=== PATIENT | female | born 1950 | race Caucasian/White ===

== ENCOUNTER 2020-07-24 11:45 | Outpatient (CLI) | payer MEDICARE, OTHER ==
[2020-07-25 01:16] LABS: SARS-CoV-2 PCR by NAA Not Detected (NotDetected)
== END 2020-07-24 11:46 | disposition home or self-care (01) ==
LOC: CSHLAB 11:45
PROVIDERS: ATTEND Internal Medicine Pulmonary Disease
DX: Z20.822 Contact with and (suspected) exposure to COVID-19 (principal); J44.9 Chronic obstructive pulmonary disease, unspecified
CPT/HCPCS: 87635; U0003; U0005

== ENCOUNTER 2020-07-29 11:48 | Outpatient (CLI) | payer MEDICARE, OTHER | END 2020-07-29 11:49 | disposition home or self-care (01) | LOC: CSHCP 11:48 | PROVIDERS: ATTEND Internal Medicine Pulmonary Disease | DX: J44.9 Chronic obstructive pulmonary disease, unspecified (principal); R94.2 Abnormal results of pulmonary function studies | CPT/HCPCS: 94060; 94726; 94729; 94760 ==

== ENCOUNTER 2021-09-02 03:35 | Inpatient (IN) | payer MEDICARE, MEDICAID ==
[2021-09-02] MEDS ORDERED: Furosemide 100 MG/10 ML VIAL SLOW IVP SCH (06:00)
[2021-09-02] MEDS ORDERED: Dextrose 5% in Water 1,000 ML IV PRN (06:02)
[2021-09-02] MEDS ORDERED: Dextrose 50% Abboject 50 ML SYRINGE SLOW IVP PRN (06:02)
[2021-09-02 06:53] LABS: Cardiac Risk 2.5 (Less than 4.5); Cholesterol 96 mg/dl (< 200 Desired); HDL Cholesterol 38 mg/dL (>60 Neg Risk); LDL Cholesterol, Calculated 38 mg/dL; Magnesium 1.4 mg/dL (1.6-2.6); Triglycerides 101 mg/dL (Less than 150)
[2021-09-02 06:57] LABS: Troponin I Less than 0.010 ng/mL (< 0.028)
[2021-09-02] MEDS: methylPREDNISolone Sod Succ 40 MG VIAL IVP SCH ×2 (07:23→16:56)
[2021-09-02] MEDS: Potassium Chloride 20 MEQ TAB PO SCH ×2 (07:29→09:26)
[2021-09-02] MEDS: Budesonide 0.5 MG/2 ML NEB NEB SCH ×2 (08:04→19:00)
[2021-09-02] MEDS: Arformoterol 15 MCG/2 ML NEB NEB SCH ×2 (08:04→19:10)
[2021-09-02] MEDS ORDERED: Losartan Potassium 50 MG TAB PO SCH (09:00)
[2021-09-02] MEDS: Aspirin 325 mg Enteric Coated Tablet PO SCH (09:25)
[2021-09-02] MEDS: Enoxaparin Sodium 40 MG/0.4 ML SYRINGE SC SCH (09:25)
[2021-09-02] MEDS: Hydrochlorothiazide 25 MG TAB PO SCH (09:25)
[2021-09-02] MEDS: Citalopram 20 MG TAB PO SCH (09:25)
[2021-09-02] MEDS: metFORMIN 500 MG TAB PO SCH ×2 (09:25→16:56)
[2021-09-02] MEDS: Carvedilol 25 MG TAB PO SCH ×2 (09:26→16:56)
[2021-09-02] MEDS: Loratadine 10 MG TAB PO SCH (09:26)
[2021-09-02] MEDS: HumaLOG 300 UNITS/3 ML VIAL SC PRN ×2 (16:57→21:36)
[2021-09-02] MEDS: Magnesium Oxide 400 MG TAB PO SCH (18:44)
[2021-09-02] MEDS: Atorvastatin Calcium 10 MG TAB PO SCH (20:16)
[2021-09-02] MEDS: Gabapentin 300 MG CAP PO SCH (20:16)
[2021-09-02] MEDS: Montelukast Sodium 10 mg Tablet PO SCH (20:16)
[2021-09-03] MEDS ORDERED: rOPINIRole HCl 1 MG TAB PO SCH (01:00)
[2021-09-03] MEDS: GUAIFENESIN SF SOLN 200 MG/10 ML UDCUP PO PRN ×4 (01:02→20:51)
[2021-09-03 05:36] LABS: ALT (SGPT) 18 U/L (8-55); AST (SGOT) 20 U/L (5-34); Albumin 3.6 g/dL (3.4-4.8); Alkaline Phosphatase 66 U/L (40-110); Anion Gap 17 mmol/L (10-20); BUN (Urea Nitrogen) 50 mg/dL (9.8-20.1); Bilirubin, Total 0.2 mg/dL (0.2-1.2); Calc. Creatinine Clearance 60 mL/min (70-130); Calcium 9.4 mg/dL (7.8-10.44); Carbon Dioxide 31 mmol/L (23-31); Chloride 97 mmol/L (98-107); Globulin 3.4 g/dL (2.4-3.5); Glucose 369 mg/dL (83-110); Magnesium 1.6 mg/dL (1.6-2.6); Potassium 4.8 mmol/L (3.5-5.1); Sodium 140 mmol/L (136-145)
[2021-09-03] MEDS: HumaLOG 300 UNITS/3 ML VIAL SC PRN ×4 (05:38→20:51)
[2021-09-03] MEDS: methylPREDNISolone Sod Succ 40 MG VIAL IVP SCH ×2 (05:40→17:02)
[2021-09-03] MEDS: Budesonide 0.5 MG/2 ML NEB NEB SCH ×2 (06:56→19:30)
[2021-09-03] MEDS: Arformoterol 15 MCG/2 ML NEB NEB SCH ×2 (06:56→19:35)
[2021-09-03] MEDS ORDERED: Loperamide HCl 2 MG CAP PO PRN (07:42)
[2021-09-03] MEDS ORDERED: Moisturizing Cream (Eucerin) 113 GM JAR TOP PRN (07:42)
[2021-09-03] MEDS ORDERED: Artificial Tear Sol 15 ML BOT EA EYE PRN (07:42)
[2021-09-03] MEDS ORDERED: hydrALAZINE 20 MG/ML VIAL SLOW IVP PRN (07:42)
[2021-09-03] MEDS ORDERED: Calcium Carbonate 500 MG ChewTAB PO PRN (07:42)
[2021-09-03] MEDS ORDERED: Ondansetron PF 4 MG/2 ML Vial IVP PRN (07:42)
[2021-09-03] MEDS ORDERED: Ondansetron ODT 4 MG TAB PO PRN (07:42)
[2021-09-03] MEDS ORDERED: Senokot S 8.6-50 MG TAB PO PRN (09:00)
[2021-09-03] MEDS: Enoxaparin Sodium 40 MG/0.4 ML SYRINGE SC SCH (09:48)
[2021-09-03] MEDS: metFORMIN 500 MG TAB PO SCH ×2 (09:49→16:51)
[2021-09-03] MEDS: Citalopram 20 MG TAB PO SCH (09:49)
[2021-09-03] MEDS: Hydrochlorothiazide 25 MG TAB PO SCH (09:49)
[2021-09-03] MEDS: Carvedilol 25 MG TAB PO SCH ×2 (09:49→16:51)
[2021-09-03] MEDS: Loratadine 10 MG TAB PO SCH (09:49)
[2021-09-03] MEDS: hydrALAZINE 25 MG TAB PO SCH ×2 (09:50→20:50)
[2021-09-03] MEDS: Magnesium Oxide 400 MG TAB PO SCH (09:50)
[2021-09-03] MEDS: Aspirin 325 mg Enteric Coated Tablet PO SCH (09:50)
[2021-09-03] MEDS: Valsartan 80 MG TAB PO SCH (09:58)
[2021-09-03] MEDS: Montelukast Sodium 10 mg Tablet PO SCH (20:50)
[2021-09-03] MEDS: Gabapentin 300 MG CAP PO SCH (20:50)
[2021-09-03] MEDS: Atorvastatin Calcium 10 MG TAB PO SCH (20:51)
[2021-09-04] MEDS: methylPREDNISolone Sod Succ 40 MG VIAL IVP SCH ×2 (06:40→18:34)
[2021-09-04] MEDS: HumaLOG 300 UNITS/3 ML VIAL SC PRN ×4 (06:44→20:34)
[2021-09-04] MEDS: Arformoterol 15 MCG/2 ML NEB NEB SCH (07:06)
[2021-09-04] MEDS: Budesonide 0.5 MG/2 ML NEB NEB SCH ×2 (07:07→21:45)
[2021-09-04] MEDS: Carvedilol 25 MG TAB PO SCH ×2 (08:38→18:33)
[2021-09-04] MEDS: Citalopram 20 MG TAB PO SCH (08:39)
[2021-09-04] MEDS: Enoxaparin Sodium 40 MG/0.4 ML SYRINGE SC SCH (08:40)
[2021-09-04] MEDS: Loratadine 10 MG TAB PO SCH (08:41)
[2021-09-04] MEDS: Hydrochlorothiazide 25 MG TAB PO SCH (08:41)
[2021-09-04] MEDS: hydrALAZINE 25 MG TAB PO SCH ×2 (08:41→20:33)
[2021-09-04] MEDS: metFORMIN 500 MG TAB PO SCH ×2 (08:42→18:33)
[2021-09-04] MEDS: Valsartan 80 MG TAB PO SCH (08:42)
[2021-09-04] MEDS: Aspirin 325 mg Enteric Coated Tablet PO SCH (08:42)
[2021-09-04] MEDS ORDERED: Valsartan 80 MG TAB PO SCH (11:00)
[2021-09-04] MEDS: Gabapentin 300 MG CAP PO SCH (20:32)
[2021-09-04] MEDS: guaiFENesin ER 600 MG TAB PO PRN (20:32)
[2021-09-04] MEDS: Montelukast Sodium 10 mg Tablet PO SCH (20:33)
[2021-09-04] MEDS: Atorvastatin Calcium 10 MG TAB PO SCH (20:33)
[2021-09-05 04:28] LABS: #Monocytes 0.5 10x3/uL (0.0-1.1); #Neutrophils 10.5 10x3/uL (1.5-8.4); %Basophils 0.1 % (0.0-2.0); %Lymphocytes 10.4 % (18.0-47.0); %Monocytes 4.1 % (0.0-10.0); %Neutrophils 84.2 % (40.0-75.0); Hemoglobin 10.6 g/dL (12.0-15.5); Mean Corpuscular HGB CONC 29.4 g/dL (32.0-36.0); Mean Corpuscular Hemoglobin 24.7 pg (27.0-33.0); Mean Platelet Volume 11.9 fl (7.4-10.4); Platelet Count 179 10x3/uL (150-450); RBC Distribution Width 14.9 % (11.5-14.5); White Blood Cell (WBC) Count 12.4 10x3/uL (3.5-10.5)
[2021-09-05 04:50] LABS: ALT (SGPT) 23 U/L (8-55); AST (SGOT) 18 U/L (5-34); Albumin 3.6 g/dL (3.4-4.8); Alkaline Phosphatase 57 U/L (40-110); Anion Gap 17 mmol/L (10-20); BUN (Urea Nitrogen) 50 mg/dL (9.8-20.1); Bilirubin, Total 0.2 mg/dL (0.2-1.2); Calc. Creatinine Clearance 74 mL/min (70-130); Calcium 9.6 mg/dL (7.8-10.44); Carbon Dioxide 30 mmol/L (23-31); Chloride 100 mmol/L (98-107); Globulin 2.9 g/dL (2.4-3.5); Glucose 206 mg/dL (83-110); Magnesium 2.1 mg/dL (1.6-2.6); Phosphorus 3.3 mg/dL (2.3-4.7); Potassium 4.5 mmol/L (3.5-5.1); Protein, Total 6.5 g/dL (5.8-8.1); Sodium 142 mmol/L (136-145)
[2021-09-05] MEDS: methylPREDNISolone Sod Succ 40 MG VIAL IVP SCH ×2 (05:09→17:20)
[2021-09-05] MEDS: HumaLOG 300 UNITS/3 ML VIAL SC PRN ×4 (05:10→20:17)
[2021-09-05 05:38] LABS: Platelet Morphology Comment Appears Adequate
[2021-09-05 05:39] LABS: Anisocytosis SLIGHT = 6-15 cells (100X) (0-5/hpf); Hypochromia SLIGHT = 6-15 cells (100X) (0-5/hpf); Macrocytosis SLIGHT = 6-15 cells (100X) (0-5/hpf); Microcytosis SLIGHT = 6-15 cells (100X) (0-5/hpf); Polychromasia SLIGHT = 2-3 cells (100X) (0-2/hpf)
[2021-09-05] MEDS: Arformoterol 15 MCG/2 ML NEB NEB SCH ×3 (06:40→20:14)
[2021-09-05] MEDS: Budesonide 0.5 MG/2 ML NEB NEB SCH ×2 (06:41→18:36)
[2021-09-05] MEDS: Valsartan 80 MG TAB PO SCH (08:18)
[2021-09-05] MEDS: Loratadine 10 MG TAB PO SCH (08:19)
[2021-09-05] MEDS: hydrALAZINE 25 MG TAB PO SCH ×3 (08:20→20:14)
[2021-09-05] MEDS: Enoxaparin Sodium 40 MG/0.4 ML SYRINGE SC SCH (08:20)
[2021-09-05] MEDS: metFORMIN 500 MG TAB PO SCH ×2 (08:20→17:20)
[2021-09-05] MEDS: Hydrochlorothiazide 25 MG TAB PO SCH (08:21)
[2021-09-05] MEDS: Carvedilol 25 MG TAB PO SCH ×2 (08:21→17:20)
[2021-09-05] MEDS: Citalopram 20 MG TAB PO SCH (08:21)
[2021-09-05] MEDS: Aspirin 325 mg Enteric Coated Tablet PO SCH (08:21)
[2021-09-05] MEDS: NPH, Human Insulin Isophane 300 UNIT/3 ML VIAL SC SCH ×2 (08:24→20:15)
[2021-09-05] MEDS: Cepastat Lozenges 1 LOZ PO PRN ×3 (17:28→23:05)
[2021-09-05] MEDS: guaiFENesin ER 600 MG TAB PO PRN (19:29)
[2021-09-05] MEDS: Gabapentin 300 MG CAP PO SCH (20:14)
[2021-09-05] MEDS: Atorvastatin Calcium 10 MG TAB PO SCH (20:14)
[2021-09-05] MEDS: Montelukast Sodium 10 mg Tablet PO SCH (20:14)
[2021-09-06] MEDS ORDERED: Promethazine 25 MG TAB PO SCH (01:00)
[2021-09-06] MEDS: Cepastat Lozenges 1 LOZ PO PRN (01:26)
[2021-09-06] MEDS: methylPREDNISolone Sod Succ 40 MG VIAL IVP SCH ×3 (05:56→22:31)
[2021-09-06] MEDS: HumaLOG 300 UNITS/3 ML VIAL SC PRN ×2 (05:56→22:28)
[2021-09-06] MEDS: Arformoterol 15 MCG/2 ML NEB NEB SCH ×2 (07:22→19:25)
[2021-09-06] MEDS: Budesonide 0.5 MG/2 ML NEB NEB SCH ×2 (07:23→19:15)
[2021-09-06] MEDS: Hydrochlorothiazide 25 MG TAB PO SCH (09:29)
[2021-09-06] MEDS: hydrALAZINE 25 MG TAB PO SCH ×3 (09:29→22:31)
[2021-09-06] MEDS: Carvedilol 25 MG TAB PO SCH ×2 (09:29→17:22)
[2021-09-06] MEDS: Enoxaparin Sodium 40 MG/0.4 ML SYRINGE SC SCH (09:29)
[2021-09-06] MEDS: Valsartan 80 MG TAB PO SCH (09:29)
[2021-09-06] MEDS: Citalopram 20 MG TAB PO SCH (09:29)
[2021-09-06] MEDS: Loratadine 10 MG TAB PO SCH (09:29)
[2021-09-06] MEDS: metFORMIN 500 MG TAB PO SCH ×2 (09:29→17:22)
[2021-09-06] MEDS: Aspirin 325 mg Enteric Coated Tablet PO SCH (09:29)
[2021-09-06] MEDS: NPH, Human Insulin Isophane 300 UNIT/3 ML VIAL SC SCH ×2 (09:29→22:28)
[2021-09-06] MEDS ORDERED: Carvedilol 25 MG TAB PO SCH (21:00)
[2021-09-06] MEDS: Montelukast Sodium 10 mg Tablet PO SCH (22:26)
[2021-09-06] MEDS: Atorvastatin Calcium 10 MG TAB PO SCH (22:27)
[2021-09-06] MEDS: Gabapentin 300 MG CAP PO SCH (22:27)
[2021-09-07 04:58] LABS: Hemoglobin 11.1 g/dL (12.0-15.5); Mean Corpuscular HGB CONC 30.1 g/dL (32.0-36.0); Mean Corpuscular Hemoglobin 24.6 pg (27.0-33.0); Mean Corpuscular Volume 81.6 fl (81.6-98.3); Mean Platelet Volume 11.9 fl (7.4-10.4); Platelet Count 167 10x3/uL (150-450); RBC Distribution Width 14.6 % (11.5-14.5); Red Blood Cell (RBC) Count 4.52 10x6/uL (3.90-5.03); White Blood Cell (WBC) Count 11.7 10x3/uL (3.5-10.5)
[2021-09-07 05:00] LABS: MDiff Complete? YES; Manual Diff?? YES
[2021-09-07 05:11] LABS: Anion Gap 15 mmol/L (10-20); BUN (Urea Nitrogen) 41 mg/dL (9.8-20.1); Calc. Creatinine Clearance 76 mL/min (70-130); Calcium 9.4 mg/dL (7.8-10.44); Carbon Dioxide 31 mmol/L (23-31); Chloride 97 mmol/L (98-107); Glucose 223 mg/dL (83-110); Potassium 4.8 mmol/L (3.5-5.1); Sodium 138 mmol/L (136-145)
[2021-09-07 05:28] LABS: Band 2 % (5-11); Lymphocytes 6 % (21-51); Metamyelocyte 1 % (0-0); Monocytes 1 % (0-10); Myelocyte 1 % (0-0); Neutrophil 86 % (42-75); Platelet Morphology Comment Appears Adequate; Reactive Lymphocytes 3 % (0-10)
[2021-09-07] MEDS: HumaLOG 300 UNITS/3 ML VIAL SC PRN ×3 (06:33→22:04)
[2021-09-07] MEDS: methylPREDNISolone Sod Succ 40 MG VIAL IVP SCH ×3 (06:33→22:03)
[2021-09-07] MEDS: Arformoterol 15 MCG/2 ML NEB NEB SCH ×2 (07:22→19:20)
[2021-09-07] MEDS: Budesonide 0.5 MG/2 ML NEB NEB SCH ×2 (07:23→19:10)
[2021-09-07] MEDS: Aspirin 325 mg Enteric Coated Tablet PO SCH (08:20)
[2021-09-07] MEDS: Citalopram 20 MG TAB PO SCH (08:20)
[2021-09-07] MEDS: Carvedilol 25 MG TAB PO SCH ×2 (08:20→17:06)
[2021-09-07] MEDS: Hydrochlorothiazide 25 MG TAB PO SCH (08:20)
[2021-09-07] MEDS: metFORMIN 500 MG TAB PO SCH ×2 (08:20→17:07)
[2021-09-07] MEDS: hydrALAZINE 25 MG TAB PO SCH ×3 (08:20→21:59)
[2021-09-07] MEDS: Amlodipine 10 MG TAB PO SCH (08:20)
[2021-09-07] MEDS: Enoxaparin Sodium 40 MG/0.4 ML SYRINGE SC SCH (08:20)
[2021-09-07] MEDS: NPH, Human Insulin Isophane 300 UNIT/3 ML VIAL SC SCH ×2 (08:20→22:03)
[2021-09-07] MEDS: Loratadine 10 MG TAB PO SCH (08:20)
[2021-09-07] MEDS: Valsartan 80 MG TAB PO SCH (08:21)
[2021-09-07] MEDS ORDERED: Citalopram 20 MG TAB PO SCH (09:00)
[2021-09-07 10:53] VITALS: BMI 46.9
[2021-09-07] MEDS: Gabapentin 300 MG CAP PO SCH (22:01)
[2021-09-07] MEDS: Montelukast Sodium 10 mg Tablet PO SCH (22:02)
[2021-09-07] MEDS: Atorvastatin Calcium 10 MG TAB PO SCH (22:02)
[2021-09-08] MEDS: guaiFENesin ER 600 MG TAB PO PRN (05:48)
[2021-09-08] MEDS: methylPREDNISolone Sod Succ 40 MG VIAL IVP SCH (05:49)
[2021-09-08] MEDS: HumaLOG 300 UNITS/3 ML VIAL SC PRN ×4 (05:52→15:38)
[2021-09-08] MEDS: Arformoterol 15 MCG/2 ML NEB NEB SCH (07:05)
[2021-09-08] MEDS: Budesonide 0.5 MG/2 ML NEB NEB SCH (07:10)
[2021-09-08] MEDS: Hydrochlorothiazide 25 MG TAB PO SCH (09:24)
[2021-09-08] MEDS: metFORMIN 500 MG TAB PO SCH (09:25)
[2021-09-08] MEDS: Valsartan 80 MG TAB PO SCH (09:25)
[2021-09-08] MEDS: Amlodipine 10 MG TAB PO SCH (09:25)
[2021-09-08] MEDS: Carvedilol 25 MG TAB PO SCH (09:25)
[2021-09-08] MEDS: Loratadine 10 MG TAB PO SCH (09:25)
[2021-09-08] MEDS: hydrALAZINE 25 MG TAB PO SCH ×2 (09:25→13:44)
[2021-09-08] MEDS: Citalopram 20 MG TAB PO SCH (09:25)
[2021-09-08] MEDS: Enoxaparin Sodium 40 MG/0.4 ML SYRINGE SC SCH (09:26)
[2021-09-08] MEDS: Aspirin 325 mg Enteric Coated Tablet PO SCH (09:26)
[2021-09-08] MEDS: NPH, Human Insulin Isophane 300 UNIT/3 ML VIAL SC SCH (09:26)
[2021-09-08 12:58] VITALS: BP 146/67; TEMP 96.4
== END 2021-09-08 16:20 | disposition home or self-care (01) | DRG 189 ==
LOC: CSHTELE 03:35 → INTOOBSV 03:35 → OBSVTOIN 09-03 09:08
PROVIDERS: ADMIT Family Medicine; ATTEND Internal Medicine
PROC: 5A09357 Assistance with Respiratory Ventilation, Less than 24 Consecutive Hours, Continuous Positive Airway Pressure (ICD-10-PCS; principal; 2021-09-03)
DX: J96.01 Acute respiratory failure with hypoxia (principal); J44.1 Chronic obstructive pulmonary disease with (acute) exacerbation; J90 Pleural effusion, not elsewhere classified; N17.9 Acute kidney failure, unspecified; I50.32 Chronic diastolic (congestive) heart failure; Z68.42 Body mass index [BMI] 45.0-49.9, adult; G47.33 Obstructive sleep apnea (adult) (pediatric); E66.01 Morbid (severe) obesity due to excess calories; E78.5 Hyperlipidemia, unspecified; Z20.822 Contact with and (suspected) exposure to COVID-19; E87.6 Hypokalemia; E83.42 Hypomagnesemia; E11.9 Type 2 diabetes mellitus without complications; F41.9 Anxiety disorder, unspecified; I11.0 Hypertensive heart disease with heart failure; F32.A Depression, unspecified; E11.65 Type 2 diabetes mellitus with hyperglycemia; G25.81 Restless legs syndrome; Z88.0 Allergy status to penicillin; Z91.048 Other nonmedicinal substance allergy status; Z79.82 Long term (current) use of aspirin; Z90.49 Acquired absence of other specified parts of digestive tract; Z79.84 Long term (current) use of oral hypoglycemic drugs; Z79.899 Other long term (current) drug therapy
CPT/HCPCS: 36415; 36416; 71046; 80048; 80053; 80061; 83735; 84100; 84443; 85025; 87070; 87077; 87186; 87205; 93005; 93010; 93306; 94640; 94660; 94760; 96372; 96374; 96375; 96376; G0378; J1650; J1815; J1940; J1956; J2920; J7620; J7626; Q0169

== ENCOUNTER 2023-01-26 10:07 | Outpatient (CLI) | payer OTHER | END 2023-01-26 10:08 | disposition home or self-care (01) | LOC: CSHRAD 10:07 | PROVIDERS: ATTEND Neurological Surgery | DX: M47.26 Other spondylosis with radiculopathy, lumbar region (principal) | CPT/HCPCS: 72120 ==

== ENCOUNTER 2025-04-07 01:55 | Inpatient (IN) | payer OTHER ==
[2025-04-07 03:36] VITALS: BMI 44.6
[2025-04-07] MEDS ORDERED: Albuterol 2.5 MG (3 mL) NEB NEB PRN (03:41)
[2025-04-07] MEDS ORDERED: Senokot S 8.6-50 MG TAB PO PRN (03:48)
[2025-04-07] MEDS ORDERED: Melatonin 3 MG TAB PO PRN (03:48)
[2025-04-07] MEDS: Acetaminophen 325 MG TAB PO PRN (04:43)
[2025-04-07] MEDS ORDERED: Glucagon 1 MG/ML KIT IM PRN (05:54)
[2025-04-07] MEDS ORDERED: Dextrose 50% Abboject 50 ML SYRINGE SLOW IVP PRN (05:54)
[2025-04-07] MEDS: Valsartan 80 MG TAB PO SCH (09:52)
[2025-04-07] MEDS: Enoxaparin 40 MG (0.4 mL) SYRINGE SC SCH (09:52)
[2025-04-07] MEDS: predniSONE 20 MG TAB PO SCH (09:53)
[2025-04-07] MEDS: Citalopram 20 MG TAB PO SCH (09:54)
[2025-04-07] MEDS: Carvedilol 25 MG TAB PO SCH (09:56)
[2025-04-07] MEDS: glipiZIDE 10 MG TAB PO SCH (15:09)
[2025-04-07 15:32] LABS: Anion Gap 14 mmol/L (10-20); BUN (Urea Nitrogen) 41 mg/dL (9.8-20.1); Calc. Creatinine Clearance 55 mL/min (70-130); Calcium 9.1 mg/dL (7.8-10.44); Carbon Dioxide 26 mmol/L (23-31); Chloride 104 mmol/L (98-107); Glucose 378 mg/dL (83-110); Potassium 4.8 mmol/L (3.5-5.1); Sodium 139 mmol/L (136-145)
[2025-04-08] MEDS: Azithromycin 500 MG in Sodium Chloride 0.9% 250 ML 250 ML IVPB SCH (00:44)
[2025-04-08] MEDS: cefTRIAXone\\ROCEPHIN 1 GM in Sodium Chloride 0.9% 100 ML IVPB SCH (00:44)
[2025-04-08] MEDS: Guaifenesin DM 100-10/5 ML UDCUP PO PRN (01:28)
[2025-04-08 05:26] LABS: #Basophils Less than 0.03 10x3/uL (0.0-0.2); #Eosinophils Less than 0.03 10x3/uL (0.0-0.5); #Monocytes 1.03 10x3/uL (0.0-1.1); #Neutrophils 11.19 10x3/uL (1.5-8.4); %Basophils 0.1 % (0.0-2.0); %Eosinophils 0.1 % (0.0-6.0); %Lymphocytes 11.1 % (18.0-47.0); %Monocytes 7.4 % (0.0-10.0); %Neutrophils 80.8 % (40.0-75.0); Hematocrit 36.4 % (34.9-44.5); Hemoglobin 11.2 g/dL (12.0-15.5); Mean Corpuscular Hemoglobin 26.7 pg (27.0-33.0); Mean Corpuscular Volume 86.7 fL (81.6-98.3); Platelet Count 161 10x3/uL (150-450); Red Blood Cell (RBC) Count 4.20 10x6/uL (3.90-5.03); White Blood Cell (WBC) Count 13.85 10x3/uL (3.5-10.5)
[2025-04-08 05:40] LABS: Anion Gap 13 mmol/L (10-20); BUN (Urea Nitrogen) 40 mg/dL (9.8-20.1); Calc. Creatinine Clearance 64 mL/min (70-130); Calcium 8.8 mg/dL (7.8-10.44); Carbon Dioxide 27 mmol/L (23-31); Chloride 104 mmol/L (98-107); Glucose 175 mg/dL (83-110); Magnesium 2.3 mg/dL (1.6-2.6); Potassium 4.4 mmol/L (3.5-5.1); Sodium 140 mmol/L (136-145)
[2025-04-08] MEDS: glipiZIDE XL 10 mg ER.TAB PO SCH (09:03)
[2025-04-09] MEDS: Famotidine 20 MG TAB PO SCH (21:51)
[2025-04-10 04:23] LABS: #Basophils Less than 0.03 10x3/uL (0.0-0.2); #Eosinophils Less than 0.03 10x3/uL (0.0-0.5); #Monocytes 0.23 10x3/uL (0.0-1.1); #Neutrophils 7.64 10x3/uL (1.5-8.4); %Basophils 0.1 % (0.0-2.0); %Eosinophils 0.0 % (0.0-6.0); %Lymphocytes 13.2 % (18.0-47.0); %Monocytes 2.5 % (0.0-10.0); %Neutrophils 82.5 % (40.0-75.0); Hematocrit 35.6 % (34.9-44.5); Hemoglobin 11.1 g/dL (12.0-15.5); Mean Corpuscular Hemoglobin 26.9 pg (27.0-33.0); Mean Corpuscular Volume 86.2 fL (81.6-98.3); Platelet Count 142 10x3/uL (150-450); Red Blood Cell (RBC) Count 4.13 10x6/uL (3.90-5.03); White Blood Cell (WBC) Count 9.26 10x3/uL (3.5-10.5)
[2025-04-10 04:42] LABS: Anion Gap 13 mmol/L (10-20); BUN (Urea Nitrogen) 46 mg/dL (9.8-20.1); Calc. Creatinine Clearance 63 mL/min (70-130); Calcium 8.7 mg/dL (7.8-10.44); Carbon Dioxide 26 mmol/L (23-31); Chloride 106 mmol/L (98-107); Glucose 208 mg/dL (83-110); Potassium 4.5 mmol/L (3.5-5.1); Sodium 140 mmol/L (136-145)
[2025-04-10 13:40] VITALS: BP 159/68; TEMP 98.8
== END 2025-04-10 14:25 | disposition home or self-care (01) | DRG 189 ==
LOC: CSHTELE 02:31
PROVIDERS: ADMIT Family Medicine; ATTEND Internal Medicine
PROC: 5A09357 Assistance with Respiratory Ventilation, Less than 24 Consecutive Hours, Continuous Positive Airway Pressure (ICD-10-PCS; principal; 2025-04-07)
PROC: 3E03329 Introduction of Other Anti-infective into Peripheral Vein, Percutaneous Approach (ICD-10-PCS; 2025-04-07)
DX: J96.21 Acute and chronic respiratory failure with hypoxia (principal); J44.1 Chronic obstructive pulmonary disease with (acute) exacerbation; I13.0 Hypertensive heart and chronic kidney disease with heart failure and stage 1 through stage 4 chronic kidney disease, or unspecified chronic kidney disease; I50.32 Chronic diastolic (congestive) heart failure; N18.4 Chronic kidney disease, stage 4 (severe); Z68.42 Body mass index [BMI] 45.0-49.9, adult; Z60.2 Problems related to living alone; G47.33 Obstructive sleep apnea (adult) (pediatric); E11.40 Type 2 diabetes mellitus with diabetic neuropathy, unspecified; E11.21 Type 2 diabetes mellitus with diabetic nephropathy; Z96.652 Presence of left artificial knee joint; E11.22 Type 2 diabetes mellitus with diabetic chronic kidney disease; E78.5 Hyperlipidemia, unspecified; M19.90 Unspecified osteoarthritis, unspecified site; Z96.653 Presence of artificial knee joint, bilateral; Z74.09 Other reduced mobility; E66.01 Morbid (severe) obesity due to excess calories; Z88.0 Allergy status to penicillin; Z99.81 Dependence on supplemental oxygen; Z90.49 Acquired absence of other specified parts of digestive tract; Z98.890 Other specified postprocedural states; Z88.1 Allergy status to other antibiotic agents; Z88.5 Allergy status to narcotic agent; Z90.710 Acquired absence of both cervix and uterus
CPT/HCPCS: 36415; 36416; 80048; 83735; 85025; 93306; 94640; 94660; 94760; 94762; J0456; J0696; J1650; J1815; J2919; J7030; J7050; J7512; J7626